=== PATIENT | female | born 1990 | race Caucasian/White ===

== ENCOUNTER 2020-08-08 15:42 | Emergency (ER) | payer OTHER ==
[~2020-08-08] VITALS: Ht 160 cm; Wt 74.4 kg
--- NOTE | 2020-08-08 15:50 | NUR ---
BUG BITE ON HER BACK SINCE LAST NIGHT. AA/OX4, BREATHING EVEN AND UNLABORED, NO SOB NTOED.
[2020-08-08 15:51] VITALS: BP 126/73
--- NOTE | 2020-08-08 15:54 | NUR ---
DR. HAND AT BEDSIDE FOR EVAL.
[2020-08-08] MEDS ORDERED: diphenhydrAMINE HCL 25 MG CAPSULE ONE (15:56)
[2020-08-08] MEDS ORDERED: DIPH25CA83 PO (15:59)
[2020-08-08] MEDS ORDERED: DOXY100T2 PO (15:59)
[2020-08-08] MEDS ORDERED: PRED20TA PO (15:59)
[2020-08-08] MEDS ORDERED: diphenhydrAMINE HCL 25 MG CAPSULE PO ONE (16:00)
[2020-08-08] MEDS ORDERED: FLUC150T PO (16:05)
--- NOTE | 2020-08-08 16:09 | NUR ---
Patient a/ox4, in no distress, needs attended. Patient discharged to home in stable condition. Written and verbal after care instructions given. Patient verbalizes understanding of instruction.
== END 2020-08-08 16:11 | disposition home or self-care (01) ==
LOC: ER 15:47
DX: S30.860A Insect bite (nonvenomous) of lower back and pelvis, initial encounter (principal); Z91.038 Other insect allergy status; Z60.2 Problems related to living alone; W57.XXXA Bitten or stung by nonvenomous insect and other nonvenomous arthropods, initial encounter; Y93.89 Activity, other specified; Y92.89 Other specified places as the place of occurrence of the external cause; Y99.8 Other external cause status
CPT/HCPCS: 99283; Q0163